=== PATIENT | male | born 1975 | race American Indian/Alaskan Native ===

== ENCOUNTER 2019-03-10 13:06 | Emergency (ER) | payer SELFPAY ==
[2019-03-10 13:17] VITALS: BP 125/81
--- NOTE | 2019-03-10 13:17 | Emergency Department Report ---
Blank Doc - Documentation Documentation: 43-year-old male that presents with n/v. Denies any abdominal pain. 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 Last alcohol drink 3 days ago. This initial assessment/diagnostic orders/clinical plan/treatment(s) is/are subject to change based on patient's health status, clinical progression and re- assessment by fellow clinical providers in the ED. Further treatment and workup at subsequent clinical providers discretion. Patient/guardians urged not to elope from the ED as their condition may be serious if not clinically assessed and managed. Initial orders include: 1- Patient sent to [facility] for further evaluation and treatment 2- labs 3- UA
[2019-03-10 13:47] LABS: Bilirubin,Urine SM (Negative); Blood,Urine SM (Negative); Color,Urine Amber (Yellow); Hyaline Casts,Urine 23 /LPF; Mucus,Urine 3+ /HPF
[2019-03-10] MEDS ORDERED: ZOFRAN ODT PO ONE (13:53)
--- NOTE | 2019-03-10 13:54 | Emergency Department Report ---
HPI - General Chief Complaint: Abdominal Pain Time Seen by Provider: 03/10/19 13:15 - HPI HPI: 43-year-old male presents to the emergency department with a complaint of a 2 to three-day history of nausea and vomiting. More recently has developed a little bit of upper abdominal burning pain after all of his vomiting. He has not been able to take anything for his symptoms prior to presentation. No recent travel or sick contacts at home. He has a seizure disorder history. No primary care physician. No fever. ED Past Medical Hx - Past Medical History Previous Medical History?: Yes Hx Seizures: Yes - Surgical History Past Surgical History?: No - Social History Smoking Status: Never Smoker Substance Use Type: Alcohol - Medications Home Medications: Home Medications Medication Instructions Recorded Confirmed Last Taken Type Ondansetron [Zofran Odt] 4 mg PO Q8HR PRN #15 tab.rapdis 03/10/19 Unknown Rx ED Review of Systems ROS: Stated complaint: VOMITING X3 DAYS Other details as noted in HPI Comment: All other systems reviewed and negative Constitutional: denies: chills, fever Respiratory: denies: cough, shortness of breath Cardiovascular: denies: chest pain Gastrointestinal: abdominal pain, nausea, vomiting Genitourinary: denies: dysuria, discharge Musculoskeletal: denies: back pain Physical Exam - Physical Exam Vital Signs: Vital Signs 03/10/19 13:11 Temperature 98.5 F Pulse Rate 110 H Respiratory 16 Rate Blood Pressure 125/81 O2 Sat by Pulse 100 Oximetry Physical Exam: GENERAL: The patient is well-developed well-nourished. HENT: Normocephalic. Atraumatic. Patient has moist mucous membranes. EYES: Extraocular motions are intact. NECK: Supple. Trachea is midline. CHEST/LUNGS: Clear to auscultation. There is no respiratory distress noted. HEART/CARDIOVASCULAR: Regular. There is no tachycardia. There is no murmur. ABDOMEN: Abdomen is soft. No tenderness to palpation. No guarding. Patient has normal bowel sounds. There is no abdominal distention. SKIN: Skin is warm and dry. NEURO: The patient is awake, alert, and oriented. The patient is cooperative. The patient has no focal neurologic deficits. Normal speech. MUSCULOSKELETAL: There is no tenderness or deformity. There is no evidence of a cute injury. ED Course Vital Signs 03/10/19 13:11 Temperature 98.5 F Pulse Rate 110 H Respiratory 16 Rate Blood Pressure 125/81 O2 Sat by Pulse 100 Oximetry ED Medical Decision Making - Lab Data Result diagrams: 03/10/19 13:50 03/10/19 13:50 - Radiology Data Radiology results: image reviewed interpreted by me: Abdominal x-ray shows nonspecific nonobstructive bowel gas. - Medical Decision Making Patient presents with a few days of nausea and vomiting and now has developed a burning sensation to the epigastrium. On examination he does not have any tenderness to palpation. The abdomen is soft, nondistended and nontoxic in appearance. Patient's labs are mostly unremarkable except for signs of dehydration and a slight elevation in the LFTs, most likely secondary to his nausea and vomiting. He was given a dose of Zofran ODT and upon reevaluation he is feeling greatly improved and able to pass an oral challenge. He appears to be able to orally rehydrate himself. He has been given a prescription for Zofran ODT and referrals for primary care. He will return to the emergency Department with any worsening of his symptoms or any acute distress. - Differential Diagnosis food poisoning, gastroenteritis, colitis, gastritis Critical Care Time: No Critical care attestation.: If time is entered above; I have spent that time in minutes in the direct care of this critically ill patient, excluding procedure time. ED Disposition Clinical Impression: Dehydration Nausea & vomiting Qualifiers: Vomiting type: unspecified Vomiting Intractability: non-intractable Qualified Code(s): R11.2 - Nausea with vomiting, unspecified Abdominal pain Qualifiers: Abdominal location: unspecified location Qualified Code(s): R10.9 - Unspecified abdominal pain Disposition: -01 TO HOME OR SELFCARE Is pt being admited?: No Condition: Stable Instructions: Dehydration (ED), Acute Nausea and Vomiting (ED), Abdominal Pain (ED) Additional Instructions: Please follow-up with a primary care physician in the next few days. Increase your oral rehydration. Return to the emergency Department with any worsening of your symptoms or any acute distress. Prescriptions: Ondansetron [Zofran Odt] 4 mg PO Q8HR PRN #15 tab.rapdis PRN Reason: Nausea Referrals: HOLDEN GARRETT MD [Staff Physician] - 2-3 Days [facility] [Outside] - 2-3 Days Time of Disposition: 15:27
[2019-03-10 14:15] LABS: Ictotest,Urine Positive (Negative)
[2019-03-10 14:44] LABS: Hematocrit 40.5 % (35.5-45.6); Hemoglobin 13.3 gm/dl (11.8-15.2); Mean Corpuscular HGB Conc 33 % (32-34); Mean Corpuscular Volume 78 fl (84-94); Platelet Count 181 K/mm3 (140-440); Red Blood Count 5.18 M/mm3 (3.65-5.03); Red Cell Distribution Width 18.9 % (13.2-15.2)
--- NOTE | 2019-03-10 14:54 | XRay Report ---
ABDOMEN 1 VIEW(S) INDICATION / CLINICAL INFORMATION: Abdominal pain. COMPARISON: None available. FINDINGS: TUBES / LINES: None. BOWEL GAS PATTERN: No significant abnormality. FREE AIR / EXTRALUMINAL GAS: None seen. ADDITIONAL FINDINGS: No significant additional findings. IMPRESSION: No significant abnormality. Signer Name: Germain Regalado Jr, MD Signed: 03/10/2019 2:49 PM Workstation Name: [id number]
[2019-03-10 14:55] LABS: Alanine Aminotransferase 59 units/L (7-56); Albumin 5.5 g/dL (3.9-5); BUN/Creatinine Ratio 15; Blood Urea Nitrogen 17 mg/dL (9-20); Calcium 10.1 mg/dL (8.4-10.2); Hemolysis Index 3
[2019-03-10 19:00] LABS: Basophils % (Manual) 0 % (0.0-1.8); Eosinophils % (Manual) 0 % (0.0-4.3); Total Cells Counted 100
[2019-03-10 19:01] LABS: Anisocytosis 1+; Hypochromasia 1+; Large Platelets 1+; Platelet Estimate Consistent w Auto; Poikilocytosis 1+
== END 2019-03-10 15:43 | disposition home or self-care (01) ==
LOC: ED 13:06
DX: R10.10 Upper abdominal pain, unspecified (principal); E86.0 Dehydration
CPT/HCPCS: 36415; 74019; 80053; 81001; 83690; 85007; 85025; 87086; Q0162